=== PATIENT | male | born 1955 | race Caucasian/White ===

== ENCOUNTER 2020-05-29 09:24 | Day surgery (SDC) | payer MEDICARE, OTHER ==
[2020-05-29] MEDS ORDERED: LACTATED RINGERS 1,000 ML IV ONE ×2 (10:12→11:33)
[2020-05-29] MEDS ORDERED: MIDAZOLAM 2 MG/2 ML VIAL ONE ×3 (10:39→11:11)
[2020-05-29] MEDS ORDERED: fentaNYL 250 MCG/5 ML VIAL ONE (10:39)
[2020-05-29 11:59] VITALS: BP 104/68
== END 2020-05-29 09:25 | disposition home or self-care (01) ==
LOC: SDS 09:24
PROVIDERS: ATTEND Surgery
PROC: 0DJD8ZZ Inspection of Lower Intestinal Tract, Via Natural or Artificial Opening Endoscopic (ICD-10-PCS; principal; 2020-05-29 10:30)
DX: Z12.11 Encounter for screening for malignant neoplasm of colon (principal); K57.30 Diverticulosis of large intestine without perforation or abscess without bleeding; K64.8 Other hemorrhoids; E89.0 Postprocedural hypothyroidism
CPT/HCPCS: 93005; G0121; J3010; J7120